=== PATIENT | female | born 1965 | race Caucasian/White ===

== ENCOUNTER 2020-01-05 18:00 | Emergency (ER) | payer BC ==
[2020-01-05] MEDS ORDERED: Ketorolac 30 MG/ML SDV IVPUSH ONE (18:13)
[2020-01-05] MEDS ORDERED: diphenhydrAMINE 50 MG/ML SDV IVPUSH ONE (18:13)
[2020-01-05] MEDS: Sodium Chloride 0.9% 1,000 ML IV ONE ×2 (18:24→19:34)
[2020-01-05] MEDS: Ondansetron 4 MG/2 ML SDV IVPUSH ONE ×2 (18:25→18:45)
--- NOTE | 2020-01-05 18:29 | EDM.PDOC ---
ED HPI GENERAL MEDICAL PROBLEM - General Chief Complaint: Headache Stated Complaint: MIGRAINE,N/V Time Seen by Provider: 01/05/20 18:13 Source of Information: Reports: Patient, Family History Limitations: Reports: No Limitations - History of Present Illness INITIAL COMMENTS - FREE TEXT/NARRATIVE: Patient presents with a headache that has persisted for 5 days. She has a Shingles outbreak on left forehead that seems to have triggered the headache/ migraine. She is treating with Acyclovir. She has been vomiting all day today. Headache Pain Score (Numeric/FACES): 10 - Related Data Allergies Allergy/AdvReac Type Severity Reaction Status Date / Time codeine Allergy Rash Verified 01/05/20 18:34 Home Meds: Home Meds Amitriptyline [Elavil] 50 mg PO BEDTIME 01/05/20 [History] Trifluridine [Viroptic 1% Ophth Soln] 1 drop TOP Q2H 01/05/20 [History] allopurinoL [Zyloprim] 200 mg PO BID 01/05/20 [History] gemfibroziL [Gemfibrozil] 600 mg PO BID 01/05/20 [History] valACYclovir HCl [valACYclovir] 1,000 mg PO TID 01/05/20 [History] ED ROS GENERAL - Review of Systems Review Of Systems: See Below Constitutional: Denies: Fever, Chills HEENT: Denies: Ear Pain, Throat Pain, Vision Change Respiratory: Denies: Shortness of Breath, Cough Cardiovascular: Denies: Chest Pain, Lightheadedness, Syncope GI/Abdominal: Reports: Nausea, Vomiting. Denies: Abdominal Pain, Constipation, Diarrhea Musculoskeletal: Denies: Neck Pain, Shoulder Pain, Arm Pain, Back Pain, Hand Pain Skin: Denies: Cyanosis, Jaundice, Mottled, Pallor, Diaphoresis Neurological: Reports: Headache. Denies: Confusion, Dizziness, Seizure, Syncope , Tingling, Trouble Speaking, Difficulty Walking Psychiatric: Denies: Agitation, Anxiety, Confusion - Physical Exam Exam: See Below Exam Limited By: No Limitations General Appearance: Alert, WD/WN, No Apparent Distress Eye Exam: Bilateral Eye: EOMI, Normal Inspection, PERRL Ears: Normal External Exam, Hearing Grossly Normal Nose: Normal Inspection, No Blood Throat/Mouth: Normal Inspection, Normal Lips, Normal Oropharynx, Normal Voice, No Airway Compromise Head Exam: Atraumatic, Other (erythematous rash and blister on left forehead) Neck: Normal Inspection, Full Range of Motion Respiratory/Chest: No Respiratory Distress, Lungs Clear, Normal Breath Sounds, No Accessory Muscle Use Cardiovascular: Regular Rate, Rhythm, No Murmur Neuro Exam (Abbreviated): Alert, Oriented, CN II-XII Intact, Normal Cognition, Normal Gait, No Motor/Sensory Deficits Back Exam: Normal Inspection, Full Range of Motion. No: CVA Tenderness (L), CVA Tenderness (R) Extremities: Normal Inspection, Normal Range of Motion Psychiatric: Normal Affect, Normal Mood Skin Exam: Warm, Dry, Intact, Normal Color, No Rash Course - Vital Signs Last Recorded V/S: Last Vital Signs Temp 97.2 F 01/05/20 18:10 Pulse 94 01/05/20 18:10 Resp 18 01/05/20 18:10 BP 127/74 01/05/20 18:10 Pulse Ox 98 01/05/20 18:10 - Orders/Labs/Meds Orders: Active Orders 24 hr Category Date Time Status Ketorolac [Toradol] Med 01/05/20 18:13 Once 30 mg IVPUSH ONETIME ONE Ondansetron [Zofran] Med 01/05/20 18:13 Once 4 mg IVPUSH ONETIME ONE Sodium Chloride 0.9% @ 999 MLS/HR (1000ml) Med 01/05/20 18:13 Ordered Sodium Chloride 0.9% [Normal Saline] 1,000 ml IV .BOLUS diphenhydrAMINE [Benadryl] Med 01/05/20 18:13 Once 50 mg IVPUSH ONETIME ONE - Re-Assessments/Exams Free Text/Narrative Re-Assessment/Exam: 01/05/20 19:35 The headache is better but the nausea is still quite strong after 8 mg of Zofran. Patient appears quite uncomfortable yet. I asked what she is feeling and she says it is the nausea. I considered a head CT to rule out other etiologies but patient declined that. Will try to get nausea under better control with Reglan. 01/05/20 20:04 Headache is better. Vomiting has stopped but nausea is still quite persistent. She would like to go home and rest she says. She appears a little more comfortable and she says the only problem she is feeling now is the nausea. We discussed findings and treatment plan and patient is discharged to home in stable condition. Departure - Departure Time of Disposition: 19:58 Disposition: Home, Self-Care 01 Condition: Good Clinical Impression: Headache above the eye region Shingles Qualifiers: Herpes zoster complications: unspecified herpes zoster complication Qualified Code(s): B02.8 - Zoster with other complications Nausea & vomiting Qualifiers: Vomiting type: unspecified Vomiting Intractability: unspecified Qualified Code( s): R11.2 - Nausea with vomiting, unspecified - Discharge Information Referrals: Annabelle Winters PA-C [Primary Care Provider] - Additional Instructions: 1. Try to rest for about 12 hours. 2. You can use the Zofran ODT tabs for nausea after 4 hours if needed. 3. If worsening, go to ER or follow up with your PCP. 4. Followup with your PCP if this persists also. Sepsis Event Note - Evaluation Sepsis Screening Result: No Definite Risk - Focused Exam Vital Signs: Vital Signs Temp Pulse Resp BP Pulse Ox 01/05/20 18:10 97.2 F 94 18 127/74 98 Date Exam was Performed: 01/05/20 Time Exam was Performed: 18:14 - My Orders Last 24 Hours: My Active Orders 01/05/20 18:13 Ketorolac [Toradol] 30 mg IVPUSH ONETIME ONE Ondansetron [Zofran] 4 mg IVPUSH ONETIME ONE Sodium Chloride 0.9% @ 999 MLS/HR (1000ml) Sodium Chloride 0.9% [Normal Saline] 1,000 ml IV .BOLUS diphenhydrAMINE [Benadryl] 50 mg IVPUSH ONETIME ONE - Assessment/Plan Last 24 Hours: My Active Orders 01/05/20 18:13 Ketorolac [Toradol] 30 mg IVPUSH ONETIME ONE Ondansetron [Zofran] 4 mg IVPUSH ONETIME ONE Sodium Chloride 0.9% @ 999 MLS/HR (1000ml) Sodium Chloride 0.9% [Normal Saline] 1,000 ml IV .BOLUS diphenhydrAMINE [Benadryl] 50 mg IVPUSH ONETIME ONE
[2020-01-05] MEDS ORDERED: Ondansetron 4 MG/2 ML SDV IVPUSH ONE (18:41)
[2020-01-05] MEDS ORDERED: Metoclopramide 10 MG/2 ML SDV IVPUSH ONE (19:20)
[2020-01-05] MEDS ORDERED: Sodium Chloride 0.9% 1,000 ML ONE (19:29)
[2020-01-05] MEDS ORDERED: Ondansetron 4 MG Tab.DIS ONE (20:02)
[2020-01-05] MEDS ORDERED: Ondansetron 4 MG Tab.DIS PO ONE (20:02)
== END 2020-01-05 20:05 | disposition home or self-care (01) ==
LOC: KA.ED 18:00
DX: B02.9 Zoster without complications (principal); R11.2 Nausea with vomiting, unspecified; Z88.5 Allergy status to narcotic agent; Z79.899 Other long term (current) drug therapy
CPT/HCPCS: 96361; 96374; 96375; 99284-25; A9270-GY; J1200; J1885; J2405; J2765; J7030

== ENCOUNTER 2020-01-08 13:04 | Emergency (ER) | payer BC ==
[2020-01-08] MEDS ORDERED: Sodium Chloride 0.9% 1,000 ML IV ONE (13:06)
[2020-01-08] MEDS ORDERED: Ondansetron 4 MG/2 ML SDV IVPUSH ONE (13:06)
--- NOTE | 2020-01-08 13:52 | EDM.PDOC ---
ED HPI GENERAL MEDICAL PROBLEM - General Chief Complaint: Gastrointestinal Problem Stated Complaint: nausea/vomiting Time Seen by Provider: 01/08/20 13:15 Source of Information: Reports: Patient History Limitations: Reports: No Limitations - History of Present Illness INITIAL COMMENTS - FREE TEXT/NARRATIVE: 4-year-old female presents emergency room with a complaint of intractable nausea and vomiting over the last 24 hours with intermittent nausea and vomiting for 5 days. She was seen in the emergency room on the , 3 days ago. She was treated with IV fluids and Zofran for nausea and vomiting complaints and headache. She was discharged home. She did state to me that it did seem to improve for a day or 2. She feels her worse symptoms have worsened in the last 24 hours. She reports a fever of 102 although currently is afebrile. She denies cough, shortness of breath, abdominal pain. She's been trying to drink Sprite but has had a hard time keeping any fluids down. She denies any respiratory complaints. She has a mild headache but states that is my tolerable. She has a history of migraines and she reports this does not feel like a migraine to her. She is being treated for shingles over her left side of her for head. She is on acyclovir. There's been no other illnesses in the family. Her primary care is Annabelle STRAUSS. Onset: Gradual Onset Date: 12/31/19 Duration: Day(s):, Getting Worse Location: Reports: Generalized Quality: Reports: Ache Improves with: Reports: None Worsens with: Reports: None Context: Denies: Sick Contact Associated Symptoms: Reports: Fever/Chills, Headaches, Nausea/Vomiting. 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 Denies: Abdominal Pain, Diarrhea : Denies: Dysuria Musculoskeletal: Denies: Back Pain Skin: Denies: Pruritis, Rash Neurological: Reports: Headache. Denies: Trouble Speaking Psychiatric: Denies: Confusion, Depression Hematologic/Lymphatic: Denies: Anemia Immunologic: Denies: Anaphylaxis ED EXAM, GENERAL - Physical Exam Exam: See Below Exam Limited By: No Limitations General Appearance: Alert, WD/WN, Mild Distress Eye Exam: Bilateral Eye: EOMI, PERRL Ears: Normal External Exam, Hearing Grossly Normal, Normal TMs Ear Exam: Bilateral Ear: TM normal Nose: Normal Inspection, Normal Mucosa Throat/Mouth: Normal Oropharynx, Normal Voice, No Airway Compromise Head: Atraumatic, Normocephalic, Other (Shingles noted over the left forehead) Neck: Normal Inspection, Full Range of Motion Respiratory/Chest: No Respiratory Distress, Lungs Clear, Normal Breath Sounds, No Accessory Muscle Use Cardiovascular: Normal Peripheral Pulses, Regular Rate, Rhythm GI/Abdominal: Soft, Non-Tender, No Distention, No Mass Back Exam: Normal Inspection Extremities: Normal Inspection, Normal Range of Motion Neurological: Alert, Oriented, No Motor/Sensory Deficits Psychiatric: Flat Affect Skin Exam: Warm, Dry, Intact, Normal Color, No Rash Lymphatic: No Adenopathy Course - Orders/Labs/Meds Orders: Active Orders 24 hr Category Date Time Status COMPREHENSIVE METABOLIC PN,CMP [CHEM] Stat Lab 01/08/20 13:10 Received INFLUENZA A+B AG SCREEN [RM] Stat Lab 01/08/20 13:10 Received Sodium Chloride 0.9% [Normal Saline] 1,000 ml Med 01/08/20 13:06 Active IV .BOLUS Isolation [COMM] Routine Oth 01/08/20 13:06 Ordered Medication Orders Sodium Chloride (Normal Saline) 1,000 mls @ 999 mls/hr IV .BOLUS ONE Stop: 01/08/20 14:06 Last Admin: 01/08/20 13:26 Dose: 999 mls/hr Labs: Laboratory Tests 01/08/20 Range/Units 13:10 WBC 4.44 L (5.00-10.00) 10^3/uL RBC 4.49 (3.80-5.50) 10^6/uL Hgb 14.3 (12.0-16.0) g/dL Hct 41.5 (37.0-47.0) % MCV 92.4 H (82.0-92.0) fL MCH 31.8 H (27.0-31.0) pg MCHC 34.5 (32.0-36.0) g/dL RDW 13.0 (11.5-14.5) % Plt Count 236 (150-400) 10^3/uL MPV 9.8 (7.4-10.4) fL Immature Gran % (Auto) 0.0 (0.0-5.0) % Neut % (Auto) 69.6 (50.0-70.0) % Lymph % (Auto) 22.7 (20.0-40.0) % [place] % (Auto) 7.0 (2.0-8.0) % Eos % (Auto) 0.2 L (1.0-3.0) % Baso % (Auto) 0.5 (0.0-1.0) % Immature Gran # (Auto) 0.00 (0.00-0.50) 10^3/uL Neut # (Auto) 3.09 (2.50-7.00) 10^3/uL Lymph # (Auto) 1.01 (1.00-4.00) 10^3/uL [place] # (Auto) 0.31 (0.10-0.80) 10^3/uL Eos # (Auto) 0.01 L (0.10-0.30) 10^3/uL Baso # (Auto) 0.02 (0.00-0.10) 10^3/uL Meds: Medications Generic Name Dose Route Start Last Admin Trade Name Freq PRN Reason Stop Dose Admin Sodium Chloride 1,000 mls @ 999 mls/hr 01/08/20 13:06 01/08/20 13:26 Normal Saline IV 01/08/20 14:06 999 mls/hr .BOLUS ONE Administration Discontinued Medications Generic Name Dose Route Start Last Admin Trade Name Lenka PRN Reason Stop Dose Admin Ondansetron HCl 4 mg 01/08/20 13:06 01/08/20 13:27 Zofran IVPUSH 01/08/20 13:07 4 mg ONETIME ONE Administration - Re-Assessments/Exams Free Text/Narrative Re-Assessment/Exam: 01/08/20 14:44 Patient reports that her nausea has significantly improved with IV Zofran. She has not experienced any further episodes of vomiting since. She is given 1 L of fluids IV and was able to void without difficulty. Urine did not look a dark. Had a discussion with the patient as well as her about her recurrent symptoms. Her's symptoms seem to resolve with IV hydration and Zofran. Her lab work looks unremarkable. We'll plan on discharging her to home. Departure - Departure Time of Disposition: 15:00 Disposition: Still A Patient 30 Condition: Good Clinical Impression: Gastroenteritis Nausea & vomiting Qualifiers: Vomiting type: unspecified Vomiting Intractability: unspecified Qualified Code( s): R11.2 - Nausea with vomiting, unspecified Shingles Qualifiers: Herpes zoster complications: unspecified herpes zoster complication Qualified Code(s): B02.8 - Zoster with other complications - Discharge Information Instructions: Nausea and Vomiting, Adult, Shingles, [id number] - My Orders Last 24 Hours: My Active Orders 01/08/20 13:06 Sodium Chloride 0.9% [Normal Saline] 1,000 ml IV .BOLUS Isolation [COMM] Routine 01/08/20 13:10 COMPREHENSIVE METABOLIC PN,CMP [CHEM] Stat INFLUENZA A+B AG SCREEN [RM] Stat - Assessment/Plan Last 24 Hours: My Active Orders 01/08/20 13:06 Sodium Chloride 0.9% [Normal Saline] 1,000 ml IV .BOLUS Isolation [COMM] Routine 01/08/20 13:10 COMPREHENSIVE METABOLIC PN,CMP [CHEM] Stat INFLUENZA A+B AG SCREEN [RM] Stat Assessment:: Nausea and vomiting Shingles Plan: 1. Continue with oral hydration at home 2. Zofran ODT every 4 hours as needed for nausea. 3. Rest 4. Follow-up with primary care on Friday if not feeling symptoms are resolved. 5. Recommend follow-up with voice engineer for her shingles next week
[2020-01-08 13:57] LABS: ANION GAP 16.1 mmol/L (5-15); CHLORIDE,CL 102 mmol/L (98-115); SODIUM,NA 142 mmol/L (136-145)
[2020-01-08] MEDS ORDERED: Ondansetron 4 MG Tab.DIS PO PRN (14:49)
== END 2020-01-08 15:03 | disposition still patient (30) ==
LOC: KA.ED 13:04
DX: K52.9 Noninfective gastroenteritis and colitis, unspecified (principal); B02.9 Zoster without complications; M10.9 Gout, unspecified; Z79.899 Other long term (current) drug therapy; Z88.5 Allergy status to narcotic agent
CPT/HCPCS: 36415; 80053; 85025; 87804; 96361; 96374; 99284-25; A9270-GY; J2405; J7030